=== PATIENT | female | born 1965 | race Caucasian/White ===

== ENCOUNTER 2018-08-11 16:04 | Outpatient (REF) | payer MEDICAID, SELFPAY ==
[2018-08-11 22:05] LABS: Anion Gap 6.1 mmol/L (3-11); BUN 11 mg/dL (7-18); CO2 30.9 mmol/L (21.0-32.0); CREATININE 0.84 mg/dL (0.55-1.02); Calcium 9.4 mg/dL (8.5-10.1); Chloride 102 mmol/L (98-107); Glucose 93 mg/dL (70-100); Potassium 4.2 mmol/L (3.5-5.1); Sodium 139 mmol/L (136-145)
== END 2018-08-11 16:24 ==
LOC: NCHCN 16:04
PROVIDERS: Visit Provider Registered Nurse
DX: I10 Essential (primary) hypertension (principal)
CPT/HCPCS: 80048

== ENCOUNTER 2018-09-22 16:20 | Outpatient (REF) | payer MEDICAID, SELFPAY ==
[2018-09-22 22:16] LABS: Anion Gap 11.1 mmol/L (3-11); BUN 9 mg/dL (7-18); CO2 26.9 mmol/L (21.0-32.0); CREATININE 0.74 mg/dL (0.55-1.02); Calcium 9.6 mg/dL (8.5-10.1); Chloride 100 mmol/L (98-107); Cholesterol 246 mg/dL (50-200); Glucose 96 mg/dL (70-100); HDL Cholesterol 59 mg/dL (40-60); LDL CHOLESTEROL 145 mg/dL (<100); Sodium 138 mmol/L (136-145); Triglyceride 245 mg/dL (30-150)
[2018-09-22 22:30] LABS: C-Reactive Protein 0.11 mg/dL (0.0-0.3)
[2018-09-22 22:51] LABS: ESR 13 MM/HR (0-30)
== END 2018-09-22 16:40 ==
LOC: NCHCN 16:20
PROVIDERS: PCP Registered Nurse; Visit Provider Registered Nurse
DX: I10 Essential (primary) hypertension (principal); F32.9 Major depressive disorder, single episode, unspecified; G89.29 Other chronic pain; Z00.00 Encounter for general adult medical examination without abnormal findings
CPT/HCPCS: 80048; 80061; 83721; 85652; 86140

== ENCOUNTER 2018-11-03 11:55 | Outpatient (REF) | payer MEDICAID, SELFPAY ==
[2018-11-03 21:46] LABS: HCT 41.1 % (36.0-46.0); HGB 13.7 g/dL (12.0-15.5); Mean Corp. HGB Concentration 33.3 g/dL (32.0-36.0); Mean Platelet Volume 10.8 fL (8.0-11.0); Platelet Count 256 x1000/uL (130-400); RBC 4.28 m/cumm (4.00-5.20); RBC Distribution Width 13.6 % (11.7-14.6); White Blood Cell Count 6.49 k/cumm (4.4-10.8)
[2018-11-03 22:36] LABS: TSH (W/Ref FT4) 1.57 uIU/mL (0.358-3.74); Vitamin B12 482 pg/mL (193-986)
[2018-11-04 06:25] LABS: Vitamin D 25 Total 8.8 ng/ml (30-100)
== END 2018-11-03 12:15 ==
LOC: LBN 11:55
PROVIDERS: PCP Registered Nurse; Visit Provider Nurse Practitioner Family
DX: F41.9 Anxiety disorder, unspecified (principal); E66.3 Overweight; R45.851 Suicidal ideations
CPT/HCPCS: 82306; 85027; 82607; 84443

== ENCOUNTER 2018-12-09 18:24 | Outpatient (REF) | payer MEDICAID, SELFPAY ==
--- NOTE | 2018-12-09 16:30 | PAPFT_PTH ---
PATIENT: SANJUANITA [facility]ILLATORO [id number] AGE/SX: 53/F ROOM: RE12/09/[address]: Jia Quan : 1965 BED: DIS: 12/09/2018 SPEC #: [id number] RECD: 12/10/18 13:05 STATUS: RBADEN DE [place] #: [id number] FELICIA: 12/09/18 16:[address]: Jia Quan DEPT: [facility] Cytology RECD BY: Maryjane Espinal Tissues: 1 - CX/ENDOCX FOR PAP SMEARS Procedures: PAP THIN PREP/UVM Screening HPV DNA PROBE Comments: [id number]
== END 2018-12-09 18:44 ==
LOC: NCHCN 18:24
PROVIDERS: PCP Registered Nurse; Visit Provider Registered Nurse
DX: Z12.4 Encounter for screening for malignant neoplasm of cervix (principal); Z11.51 Encounter for screening for human papillomavirus (HPV); Z00.00 Encounter for general adult medical examination without abnormal findings
CPT/HCPCS: 88142; 87624

== ENCOUNTER 2019-04-20 14:42 | Outpatient (REF) | payer MEDICAID, SELFPAY ==
[2019-04-20 21:31] LABS: Anion Gap 7.4 mmol/L (3-11); BUN 7 mg/dL (7-18); CO2 28.6 mmol/L (21.0-32.0); CREATININE 0.84 mg/dL (0.55-1.02); Calcium 8.9 mg/dL (8.5-10.1); Chloride 104 mmol/L (98-107); Glucose 104 mg/dL (70-100); Potassium 4.5 mmol/L (3.5-5.1); Sodium 140 mmol/L (136-145)
== END 2019-04-20 15:02 ==
LOC: NCHCN 14:42
PROVIDERS: PCP Registered Nurse; Visit Provider Registered Nurse
DX: I10 Essential (primary) hypertension (principal)
CPT/HCPCS: 80048

== ENCOUNTER 2019-06-21 11:02 | Outpatient (REF) | payer MEDICAID, SELFPAY ==
[2019-06-23 05:29] LABS: Vitamin D 25 Total 24.4 ng/ml (30-100)
== END 2019-06-21 11:22 ==
LOC: NCHCN 11:02
PROVIDERS: PCP Registered Nurse; Visit Provider Registered Nurse
DX: Z86.39 Personal history of other endocrine, nutritional and metabolic disease (principal)
CPT/HCPCS: 82306

== ENCOUNTER 2020-10-02 17:34 | Outpatient (REF) | payer MEDICAID, SELFPAY ==
[2020-10-02 21:36] LABS: Calculated LDL 104 mg/dL (<100); Cholesterol 189 mg/dL (<200); HDL Cholesterol 58 mg/dL (40-60); Triglyceride 137 mg/dL (<150)
[2020-10-02 21:43] LABS: Hemoglobin A1C 5.8 % (<5.7)
== END 2020-10-02 17:35 | disposition home or self-care (01) ==
LOC: NCHCN 17:34
PROVIDERS: PCP Registered Nurse; Visit Provider Nurse Practitioner Family
DX: Z13.1 Encounter for screening for diabetes mellitus (principal); Z13.220 Encounter for screening for lipoid disorders
CPT/HCPCS: 80061; 83036